=== PATIENT | male | born 1985 | race Caucasian/White ===

== ENCOUNTER 2021-03-24 12:00 | Outpatient (RCR) | payer OTHER | END 2021-06-22 | disposition home or self-care (01) | LOC: WSOH | DX: L23.7 Allergic contact dermatitis due to plants, except food (principal); Z90.89 Acquired absence of other organs; Z98.890 Other specified postprocedural states; Y99.0 Civilian activity done for income or pay ==

== ENCOUNTER 2021-10-02 13:54 | Outpatient (RCR) | payer OTHER | END 2021-10-26 | disposition home or self-care (01) | LOC: WSOH | DX: S60.131D Contusion of right middle finger with damage to nail, subsequent encounter (principal); S62.662D Nondisplaced fracture of distal phalanx of right middle finger, subsequent encounter for fracture with routine healing; Y99.0 Civilian activity done for income or pay; Z90.89 Acquired absence of other organs ==